=== PATIENT | male | born 1955 | race Caucasian/White ===

== ENCOUNTER → 2018-10-18 | Outpatient (CLI) | payer OTHER ==
[~2018-10-18] MED LIST: DARVOCET-N 1001 EACH PO; FLAX OIL1000 MG PO; FLOMAX PO; MULTI-VITAMIN1 EAC1 PO; RANITIDINE
== END ==
LOC: CAT 12:29
DX: Z13.6 Encounter for screening for cardiovascular disorders (principal); E78.00 Pure hypercholesterolemia, unspecified; Z82.49 Family history of ischemic heart disease and other diseases of the circulatory system